=== PATIENT | male | born 1955 | race Hispanic/Latino ===

== ENCOUNTER 2023-02-11 07:32 | Day surgery (SDC) | payer MEDICARE ==
[2023-02-06 10:53] LABS: BASOPHILS # (AUTO) 0.03 K/uL (0.00-0.20); BASOPHILS % (AUTO) 0.5 % (0.0-5.0); EOSINOPHILS # (AUTO) 0.09 K/uL (0.00-0.70); EOSINOPHILS % (AUTO) 1.5 % (0.0-8.0); HEMATOCRIT 47.8 % (42-54); IMMATURE GRANULOCYTE ABSOLUTE 0.02 K/uL (0-1); LYMPHOCYTES # (AUTO) 2.1 K/uL (1.0-4.8); LYMPHOCYTES % (AUTO) 34.2 % (21.0-51.0); MEAN CORPUSCULAR HEMOGLOBIN 31.3 pg (27.0-33.0); MEAN CORPUSCULAR HGB CONC 33.5 g/dL (32.0-36.0); MEAN CORPUSCULAR VOLUME 93.5 fL (79-99); MONOCYTES # (AUTO) 0.5 K/uL (0.1-1.0); MONOCYTES % (AUTO) 8.4 % (3.0-13.0); NEUTROPHILS # (AUTO) 3.4 K/uL (1.8-7.7); NEUTROPHILS % (AUTO) 55.1 % (40.0-77.0); PLATELET COUNT (AUTO) 217 K/uL (130-400); RED BLOOD CELL COUNT(AUTO) 5.11 MIL/uL (4.50-6.20); WHITE BLOOD COUNT (AUTO) 6.1 K/uL (4.8-10.8)
[2023-02-06 11:05] LABS: POTASSIUM 4.5 mmol/L (3.5-5.1)
[2023-02-06 11:07] LABS: INR 0.94 (0.85-1.15); PROTHROMBIN TIME 10.9 SEC (9.6-11.6)
[2023-02-06 11:08] LABS: PARTIAL THROMBOPLASTIN TIME 25.9 SEC (26.3-35.5)
[2023-02-06 11:22] VITALS: BP 168/77; PULSE 69; RESP 16
[2023-02-11] VITALS (21 sets, daily range): BP systolic 116–154; BP diastolic 60–79; PULSE 61–88; RESP 10–18
[~2023-02-11] VITALS: Ht 162.6 cm; Wt 65.2 kg
[~2023-02-11 07:32] MED LIST: AEC81 PO; ASCO500C18 PO; DEXAMETHASONE SOD PHOSPHATE 10MG/ML 1ML VIAL ONE; FENTANYL CITRATE PF 50 MCG/1 ML 2ML VIAL ONE; GLYCOPYRROLATE 1 MG/5 ML SYRINGE ONE; LIDOCAINE PF 100MG/5ML (2%) SYRINGE 5ML ONE; LISI5TAB21 PO; MIDAZOLAM HCL 1 MG/ML 2ML VIAL ONE; NAPR-1192 PO; NEOSTIGMINE METHYLSULFATE 1MG/ML IV ONE; ONDANSETRON 4MG INJ ONE; PANT40TA PO; PROPOFOL 10 MG/ML 20ML VIAL IV ONE; ROCURONIUM BROMIDE 10MG/1ML 5ML VL ONE; ROSU10TA28 PO; SUCCINYLCHOLINE 200MG/10ML SYR ONE; ZINC50TA15 PO
[2023-02-11] MEDS ORDERED: CEFAZOLIN SODIUM 2 GM VIAL ONE (07:58)
[2023-02-11] MEDS ORDERED: LACTATED RINGERS 1000ML 1,000 ML IV ONE (07:58)
[2023-02-11] MEDS ORDERED: VANCOMYCIN 1G/250ML KIT 250 ML IV ONE (08:03)
[2023-02-11] MEDS ORDERED: LIDOCAINE HCL 2% JELLY 5 ML ONE (09:07)
[2023-02-11] MEDS ORDERED: ONDANSETRON 4MG INJ ONE ×2 (09:07→11:52)
[2023-02-11] MEDS ORDERED: FENTANYL CITRATE PF 50 MCG/1 ML 2ML VIAL ONE (09:57)
[2023-02-11] MEDS ORDERED: BUPIVACAINE/PF 0.5% 10ML VIAL ONE (10:44)
[2023-02-11] MEDS ORDERED: GABA-529 PO (10:58)
[2023-02-11] MEDS ORDERED: DOCU-116 PO (10:58)
[2023-02-11] MEDS ORDERED: TRAM50TA4 PO (10:58)
[2023-02-11] MEDS ORDERED: METH-662 PO (10:58)
[2023-02-11] MEDS ORDERED: KETOROLAC 30MG VIAL (30MG/ML) ONE (11:52)
[2023-02-11] MEDS ORDERED: MEPERIDINE-PF 25 MG/ML SYG ONE (11:52)
== END 2023-02-11 16:10 | disposition home or self-care (01) ==
LOC: DAH 07:32
PROVIDERS: ATTEND Surgery
DX: K40.90 Unilateral inguinal hernia, without obstruction or gangrene, not specified as recurrent (principal); I10 Essential (primary) hypertension; K21.9 Gastro-esophageal reflux disease without esophagitis; E78.5 Hyperlipidemia, unspecified; Z79.899 Other long term (current) drug therapy; Z88.0 Allergy status to penicillin; Z98.890 Other specified postprocedural states; Z79.82 Long term (current) use of aspirin; Z79.01 Long term (current) use of anticoagulants
CPT/HCPCS: 80048; 85025; 85610; 85730; 36415; 93005; 49505; 64486; A4663; J7030; J7120 ×2; A4452; A4344; C1729; J3010 ×2; J0330; J3490 ×2; J1100; J0665; J2001; J2250; J2704; J2405 ×3; J1885; J2710; J3370; J2175; A4649; A4215; A4223; A4222; A4221; A4600; J0690